=== PATIENT | male | born 1945 | race Caucasian/White ===

== ENCOUNTER 2021-11-26 21:05 | Emergency (ER) | payer MEDICARE, BC ==
[~2021-11-26] VITALS: Ht 175.3 cm; Wt 77.1 kg
[~2021-11-26 21:05] MED LIST: ASPI81CH PO; FISH1000 PO; LEVSOD50 PO; Multivitamin1 EAC1 PO; PRAV20 PO
[2021-11-26] MEDS ORDERED: Lisinopril2.5 MG (21:36)
[2021-11-26 22:04] LABS: Source, Urine Clean Catch
[2021-11-26 22:07] LABS: Bilirubin, Urine Neg (Neg); Blood, Urine Neg (Neg); Glucose Qualitative, Urine Neg (Neg); Ketones, Urine Neg (Neg); Leukocyte Esterase, Urine Neg (Neg); Nitrite, Urine Neg (Neg); Protein, Urine 1+ (Neg); Specific Gravity, Urine 1.025 (1.003-1.022); Urobilinogen, Urine NORM (Normal)
[2021-11-26 22:17] LABS: Appearance, Urine Clear (Clear); Color, Urine Yellow (P-Yellow)
== END 2021-11-26 22:31 | disposition home or self-care (01) ==
LOC: ER 21:05
PROVIDERS: Physician Assistant
DX: K40.90 Unilateral inguinal hernia, without obstruction or gangrene, not specified as recurrent (principal)
CPT/HCPCS: 99284

== ENCOUNTER 2022-05-28 05:55 | Day surgery (SDC) | payer MEDICARE, BC ==
[~2022-05-28] VITALS: Ht 175.3 cm; Wt 74.6 kg
[~2022-05-28 05:55] MED LIST changes: +AMLO5 PO; +LEVSOD100 PO; -LEVSOD50 PO; +Lisinopril2.5 MG PO
--- NOTE | 2022-05-28 07:31 | NUR ---
PROCEDURE CANCELLED DUE TO POSITIVE COVID TEST. DR BROOKS CONSULTED WITH PATIENT.
== END 2022-05-28 23:14 | disposition home or self-care (01) ==
LOC: ORSCMMR 05:55 → ORD 07:30 → ORSCMMR 23:14
DX: K40.90 Unilateral inguinal hernia, without obstruction or gangrene, not specified as recurrent (principal); Z53.9 Procedure and treatment not carried out, unspecified reason
CPT/HCPCS: J0690; J7120

== ENCOUNTER 2022-07-23 05:51 | Day surgery (SDC) | payer OTHER, MEDICARE, BC ==
[~2022-07-23] VITALS: Ht 175.3 cm; Wt 76.8 kg
--- NOTE | 2022-07-23 07:57 | NUR ---
0730 pt cancelled due to testing positive for covid. Pt was possitive in april and cancelled but then tested negative after that. Anesthesiologist cancelled today due to being positive after a negative test. Pt will be rescheduled for 6 weeks from now. Patient verbalized understanding
== END 2022-07-23 23:17 | disposition home or self-care (01) ==
LOC: ORSCMMR 05:51 → ORD 07:30 → ORSCMMR 07:30
DX: K40.90 Unilateral inguinal hernia, without obstruction or gangrene, not specified as recurrent (principal); Z53.09 Procedure and treatment not carried out because of other contraindication; U07.1 COVID-19
CPT/HCPCS: J2795

== ENCOUNTER 2022-11-19 10:29 | Day surgery (SDC) | payer MEDICARE, BC ==
[~2022-11-19] VITALS: Ht 175.3 cm; Wt 77.7 kg
--- NOTE | 2022-11-19 11:42 | NUR ---
Ambulatory in Day Surgery. History, Chart, Medications and Allergies reviewed before start of procedure. Lungs clear T/O to Auscultation. Pre-Op teaching done. Pt verbalizes understanding.
--- NOTE | 2022-11-19 13:56 | NUR ---
REPORT RECEIVED FROM JC DAVIDSON. VSS. PT RESTING COMFORTABLY IN BED. PT REPORTS SHARP PAIN OF 4/10 TO LEFT ABDOMEN. PT REPORTS MILD NAUSEA. PT REQUESTING PO FLUIDS AND TOLERATING THEM WELL. PT DRESSING C/D/I WITHOUT DRAINAGE, REDNESS, OR SWELLING.
--- NOTE | 2022-11-19 14:20 | NUR ---
PT HAD INCIDENCE OF NAUSEA AFTER PAIN MEDICATIONS WITH SOME EMESIS. PT UP TO BR AND REGLAN GIVEN WITH GOOD RELIEF. PT VERBALIZES READY FOR DISCHARGE.
--- NOTE | 2022-11-19 14:47 | NUR ---
Patient up to Ambulate independently. Gait steady. Discharge instructions reviewed with patient. Patient verbalizes understanding. Copy given to patient to take home. Dressing to procedure site clean, dry, intact with no visible drainage, swelling, erythema or bruising noted. Patient States Post-Procedure ride home has been arranged. Discharged via wheelchair to private car for ride home. PT BELONGINGS RETURNED TO PT.
== END 2022-11-19 23:52 | disposition home or self-care (01) ==
LOC: ORSCMMR 10:29 → ORD 12:00 → ORSCMMR 23:52
PROVIDERS: Surgery
PROC: 0YU64JZ Supplement Left Inguinal Region with Synthetic Substitute, Percutaneous Endoscopic Approach (ICD-10-PCS; principal; 2022-11-19 12:00)
PROC: 3E0M45Z Introduction of Adhesion Barrier into Peritoneal Cavity, Percutaneous Endoscopic Approach (ICD-10-PCS; principal; 2022-11-19 12:00)
PROC: 8E0W4CZ Robotic Assisted Procedure of Trunk Region, Percutaneous Endoscopic Approach (ICD-10-PCS; principal; 2022-11-19 12:00)
DX: K40.90 Unilateral inguinal hernia, without obstruction or gangrene, not specified as recurrent (principal); I10 Essential (primary) hypertension; E78.00 Pure hypercholesterolemia, unspecified; E03.9 Hypothyroidism, unspecified; Z79.899 Other long term (current) drug therapy
CPT/HCPCS: 49650; S2900; A9270; C1781; J0690; J1100; J2250; J2370; J2405; J2704; J2765; J2795; J3010; J7120

== ENCOUNTER 2024-07-03 08:58 | Day surgery (SDC) | payer MEDICARE, BC ==
[~2024-07-03] VITALS: Ht 175.3 cm; Wt 77.9 kg
[~2024-07-03 08:58] MED LIST changes: +Balanced Salt Epinephrine Irrigation Solution 500 mL IR SCH; +Lidocaine HCl/Pf 1% 5 ML VIAL ONE; +Lidocaine HCl/Pf 1% 5 ML VIAL XX SCH; +Moxifloxacin HCL 0.5 MG/0.1 ML 0.4MLSYR RIGHTEYE SCH; +NS 500 ML IV ONE; +PHENYLEPHRINE\\TROPICAMIDE\\TETRACAINE OPHTHALMIC DILATING SOLN RIGHTEYE PRN; +Povidone-Iodine 450 DROP/30 ML Solution RIGHTEYE SCH
[2024-07-03] MEDS ORDERED: NS 500 ML IV ONE (09:17)
[2024-07-03] MEDS ORDERED: Midazolam HCl 1MG / ML 2ML Vial ONE (09:30)
[2024-07-03 09:52] VITALS: BP 123/65
== END 2024-07-03 10:08 | disposition home or self-care (01) ==
LOC: ORSCSDS 08:58
PROVIDERS: Student in an Organized Health Care Education/Training Program
PROC: 08RJ3JZ Replacement of Right Lens with Synthetic Substitute, Percutaneous Approach (ICD-10-PCS; principal; 2024-07-03 10:00)
DX: H25.811 Combined forms of age-related cataract, right eye (principal); Z96.1 Presence of intraocular lens; Z86.69 Personal history of other diseases of the nervous system and sense organs; E78.00 Pure hypercholesterolemia, unspecified; E07.9 Disorder of thyroid, unspecified; Z79.899 Other long term (current) drug therapy; I10 Essential (primary) hypertension
CPT/HCPCS: J2001; J2250; J7040; V2632